=== PATIENT | male | born 1965 | race Caucasian/White ===

== ENCOUNTER 2020-10-24 12:42 | Emergency (ER) | payer MEDICARE, MEDICAID, SELFPAY ==
--- NOTE | ~2020-10-24 | XR_ITS ---
EXAMINATION: XR KNEE, RIGHT CLINICAL INFORMATION: Fall 3 weeks ago, trauma, persistent pain. COMPARISON: None TECHNIQUE: 5 views of the right knee. FINDINGS: There is a moderate to large suprapatellar effusion. There is no visible fracture or dislocation or destructive process. There are mild degenerative changes medial lateral knee joint compartments with borderline joint narrowing and borderline marginal osteophytes. No erosive change. No chondrocalcinosis. XR/XR knee RT 4V IMPRESSION: Moderate to large effusion. No acute bony abnormality.
[2020-10-24 12:43] VITALS: BP 120/94; PULSE 86; RESP 18; TEMP 36.7; O2SAT 99; BMI 29.4
--- NOTE | 2020-10-24 13:53 | ED_ITS ---
HPI - Extremity Injury (Lower) General Chief Complaint: Extremity Injury, Lower Stated Complaint: knee injury Source: patient Mode of arrival: ambulatory Limitations: no limitations History of Present Illness HPI Narrative: Patient presents to the ED for right knee pain for 3 weeks. Patient states 3 weeks ago he was drinking and while trying to break a fall he he twisted his right knee and heard a pop in right knee and since then has had swelling and pain. Patient denies any fever, chills, warmth/redness of knee. Patient denies inability to bend the knee or walk. Related Data Previous Rx's Medication Instructions Recorded prednisone 60 mg PO DAILY 5 Days #15 tab 10/24/20 tramadol 50 mg PO TID PRN #9 tab 10/24/20 Allergies Allergy/AdvReac Type Severity Reaction Status Date / Time acetaminophen [From Tylenol] Allergy Itching Verified 10/24/20 12:48 naproxen Allergy Itching Verified 10/24/20 12:49 Review of Systems Review of Systems: Yes all other systems are reviewed and are negative Constitutional: Constitutional: Reports as per HPI and Reports no additional constitutional complaints Eyes: Eyes: Reports as per HPI and Reports no additional eye complaints ENT: Reports system reviewed and no additional complaints, except as documente d and Reports as per HPI Cardiovascular: Cardiovascular: Reports as per HPI and Reports no additional cardiovascular complaints Respiratory: Respiratory: Reports as per HPI and Reports no additional respiratory complaints Gastrointestinal: Gastrointestinal: Reports as per HPI and Reports no additional gastrointestinal complaints Genitourinary: Genitourinary: Reports no additional male genitourinary complaints and Reports as per HPI Musculoskeletal: Musculoskeletal: Reports no additional musculoskeletal complaints, Reports as per HPI and Reports arthralgias (Right knee pain) Neurologic: Reports system reviewed and no additional complaints, except as documented and Reports as per HPI Psychiatric: Psychiatric: Reports no additional psychiatric complaints and Reports as per HPI PMF Past Medical History Medical History (Updated 10/24/20 @ 14:05 by DARLING Fonseca) Bipolar 1 disorder COPD (chronic obstructive pulmonary disease) Social History Social History Advance Directives: Yes Advance Directives Information Provided: No Advance Directives on File: No Physical Exam Vital Signs: Vital Signs: Last Vital Signs Temp 98.1 F 10/24/20 12:43 Pulse 86 10/24/20 12:43 Resp 18 10/24/20 12:43 BP 120/94 H 10/24/20 12:43 Pulse Ox 99 10/24/20 12:43 Body Mass Index 29.4 Const: General: cooperative, healthy appearing, comfortable, no acute distress, well developed, alert, awake and Physically active Orientation/consciousness: patient oriented x3 HENMT: Head: Yes normal to inspection, Yes No palpable skull fracture present, Yes normocephalic and Yes atraumatic Eyes: General: appearance normal, both eyes and all related structures Neck: Neck: Yes normal visual inspection, Yes full ROM, Yes no lymphadenopathy, Yes no meningeal signs, Yes trachea midline, Yes supple and No tender Chest: Chest palpation & inspection: normal inspection of the chest and normal palpation of entire chest wall Resp: Effort & Inspection: normal respiratory effort and able to speak in complete sentences Auscultation: clear to auscultation bilaterally Cardio: Jugular venous distension: no JVD Heart sounds: S1 normal heart sound present and S2 normal heart sound present GI: Inspection: Yes normal to inspection and No abdominal wall ecchymosis Palpation (GI): Soft to palpation, not firm, nontender, no guarding and not rigid : General: No CVA tenderness and Yes no CVA tenderness Back/Spine/Pelvis: Back: no CVA tenderness, No CVA tenderness and No back tenderness Skin: General skin exam: no rashes or lesions noted and elasticity normal Neuro: General: patient oriented x3, gait normal, no meningeal signs and CN's II-XI intact bilaterally Cranial nerves: Yes CN's II-XII intact bilaterally Extrem: Knee images: 1. Tenderness. Knee negative for warmth, redness, or stiffness. Patient able to flex and extend knee. megative for leg swelling, redness of leg, or calf pain. Neuro/motor/vascular exam is intact Psych: Appearance: grossly normal, well kempt and not disheveled Course Course Course Narrative: Patient sent for x-ray. Reevaluation(s) Reevaluation #1: X-ray shows arthritis and joint effusion. No indication for arthrocentesis. Not suspecting septic joint. Not suspecting gout. Effusion either due to arthritis or possible ligament/meniscus tear from trauma. Patient placed in [place] wrap. Patient discharged with steroids and naproxen Time: 14:03 MDM - Extremity Injury (Lower) [facility] Narrative Medical decision making narrative: Knee sprain. Joint effusion point arthritis Discharge Plan Discharge Clinical Impression: Knee sprain, Joint effusion Patient Disposition: Home, Self-Care Instructions: Knee Sprain (ED), Osteoarthritis (ED), Swollen Knee Joint (ED) Additional Instructions: Return to the ED for red knee, warm/hot [place] of knee, inability to flex or extend knee, inability to walk, fever, chills, leg swelling, calf pain, chest pain, shortness of breath, or any other concerning symptoms Prescriptions: New tramadol 50 mg tablet 50 mg PO TID PRN (Reason: pain) Qty: 9 RF: 0 prednisone 20 mg tablet 60 mg PO DAILY 5 Days Qty: 15 RF: 0 Referrals: Ranjana Saenz PA-C [Phys[facility]] - 2 days (Right knee sprain after trauma with joint effusion has arthritis in knee. Many MRI to evaluate for men iscus ligament tear.) Interventions: ED Discharge Assessment Last Done: 10/24/20 14:13 Discharge Date/Time: 10/24/20 14:14 Print Language: Welsh
== END 2020-10-24 14:14 | disposition home or self-care (01) ==
PROVIDERS: Emergency Provider Emergency Medicine
DX: S83.91XA Sprain of unspecified site of right knee, initial encounter (principal); M25.461 Effusion, right knee; M17.11 Unilateral primary osteoarthritis, right knee; X50.1XXA Overexertion from prolonged static or awkward postures, initial encounter; Y93.9 Activity, unspecified; Y92.9 Unspecified place or not applicable; Y99.9 Unspecified external cause status
CPT/HCPCS: 73564; 99283